=== PATIENT | female | born 1945 | race Caucasian/White ===

== ENCOUNTER 2021-07-09 19:53 | Emergency (ER) | payer MEDICARE ==
[~2021-07-09] VITALS: Ht 165.1 cm; Wt 77.1 kg
[2021-07-09 19:59] VITALS: BP 169/62
[2021-07-09] MEDS ORDERED: HYDRALAZINE 5050 MG PO (20:03)
[2021-07-09] MEDS ORDERED: ADALAT CC30 MG PO (20:04)
[2021-07-09] MEDS ORDERED: ROSUVASTATIN CA10 MG PO (20:04)
[2021-07-09] MEDS ORDERED: CELECOXIB100 MG PO (20:04)
[2021-07-09] MEDS ORDERED: PAROXETINE HCL20 MG PO (20:05)
[2021-07-09] MEDS ORDERED: ASA81BEC PO (20:05)
[2021-07-09] MEDS ORDERED: DOXYCYCLINE MO100 MG PO (20:06)
== END 2021-07-09 20:44 | disposition home or self-care (01) ==
LOC: ER 19:53
DX: Z20.822 Contact with and (suspected) exposure to COVID-19 (principal); I10 Essential (primary) hypertension; I48.91 Unspecified atrial fibrillation; Z98.890 Other specified postprocedural states; Z79.82 Long term (current) use of aspirin; Z79.899 Other long term (current) drug therapy; Z88.2 Allergy status to sulfonamides